=== PATIENT | female | born 1950 | race Hispanic/Latino ===

== ENCOUNTER 2017-02-17 08:25 | Outpatient (CLI) | payer MEDICARE ==
--- NOTE | 2017-02-17 11:00 | ULT ---
COMPLETE ABDOMINAL ULTRASOUND: HISTORY: A 66-year-old female with liver disease. FINDINGS: The gallbladder is demonstrated without evidence of gallstones, wall thickening, edema, or pericholec ystic fluid. The common bile duct is 0.5 cm. Multiple liver cysts, up to 6 cm. One small, 1 cm in diameter, hypoechoic focus in the anterior left lobe of the liver, incompletely characterized on this study, possibly a small cyst as well. The visualized pancreas, IVC, aorta, and spleen are unremarka ble. The kidneys show no hydronephrosis. IMPRESSION: 1. No evidence of gallstones. 2. Fairly large liver cyst, as well as a smaller, 1 cm in diameter, hypoechoic focus in the anterior left lobe, not definitively characterized on this study. 3. No ductal dilatation. 4. Slightly heterogeneous liver echogenicity, possibly representing a nonspecific diffuse hepatic pa renchymal process. POS: NARCISA
== END 2017-02-17 08:26 | disposition home or self-care (01) ==
LOC: ULT 08:25
PROVIDERS: ATTEND Family Medicine
DX: K76.89 Other specified diseases of liver (principal)
CPT/HCPCS: 76700

== ENCOUNTER 2017-08-28 09:16 | Outpatient (CLI) | payer MEDICARE | END 2017-08-28 09:17 | disposition home or self-care (01) | LOC: BICMAMMO 09:16 | PROVIDERS: ATTEND Family Medicine | DX: Z12.31 Encounter for screening mammogram for malignant neoplasm of breast (principal); Z80.3 Family history of malignant neoplasm of breast | CPT/HCPCS: 77063; 77067 ==

== ENCOUNTER 2018-01-30 10:32 | Outpatient (CLI) | payer MEDICARE ==
--- NOTE | 2018-01-30 12:25 | BD ---
DEXA BONE DENSITY: HISTORY: A 67-year-old postmenopausal female. COMPARISON: 06/26/2015 FINDINGS: LUMBAR SPINE BMD (g/cm2) T-SCORE Z-SCORE L1 0.741 -2.3 -0.5 L2 0.637 -3.6 -1.6 L3 0.747 -3.1 -1.0 L4 0,813 -2.3 -0.1 TOTAL 0.737 -2.8 -0.8 On 06/26/2015, BMD 0.796 and T-score -2.3. BMD change versus baseline 7.4%. BMD change versus previ ous -7.4%. FEMUR BMD (g/cm2) T-SCORE Z-SCORE FEMORAL NECK 0.673 -1.6 0.0 TOTAL FEMUR 0.795 -1.2 0.1 On 06/26/2015, BMD 0.816 and T-score -1.0. BMD change versus baseline 2.5%. BMD change versus previ ous -2.5%. IMPRESSION: 1. Lumbar spine World Health Organization (WHO) classification is osteoporosis. Fracture risk is hi gh. 2. Femoral neck World Health Organization (WHO) classification is osteopenia. Fracture risk not rep orted because some T-scores are at or below -3.5. POS: NARCISA
== END 2018-01-30 10:33 | disposition home or self-care (01) ==
LOC: BICMAMMO 10:32
PROVIDERS: ATTEND Family Medicine
DX: M85.88 Other specified disorders of bone density and structure, other site (principal); M85.0 Fibrous dysplasia (monostotic); M81.0 Age-related osteoporosis without current pathological fracture
CPT/HCPCS: 77080

== ENCOUNTER 2018-09-06 08:49 | Outpatient (CLI) | payer MEDICARE ==
--- NOTE | 2018-09-06 09:41 | MMO ---
Bilateral MAMMO Bilat Screen [facility]. CLINICAL HISTORY: Patient is 68 years old and is seen for screening. The patient has the following family history of breast cancer: maternal aunt, 50'S. The patient has no personal history of cancer. The patient has a history of right Excisional Biopsy in - benign and left cyst aspiration in - benign. VIEWS: The views performed were: bilateral craniocaudal with tomosynthesis and bilateral mediolateral oblique with tomosynthesis. FILMS COMPARED: The present examination has been compared to prior imaging studies performed at [facility] on 04/15/2014, 06/25/2015, 08/26/2016 and 08/28/2017. MAMMOGRAM FINDINGS: There are scattered fibroglandular densities. There are benign appearing calcifications seen in both breasts. There are no suspicious masses, suspicious calcifications, or new areas of architectural distortion. IMPRESSION: THERE IS NO MAMMOGRAPHIC EVIDENCE OF MALIGNANCY. A ROUTINE FOLLOW-UP MAMMOGRAM IN 1 YEAR IS RECOMMENDED. THE RESULTS OF THIS EXAM WERE SENT TO THE PATIENT. ACR BI-RADS Category 2 - Benign finding MAMMOGRAPHY NOTE: 1. A negative mammogram report should not delay a biopsy if a dominant of clinically suspicious mass is present. 2. Approximately 10% to 15% of breast cancers are not detected by mammography. 3. Adenosis and dense breasts may obscure an underlying neoplasm. Reported by: MERCEDES SALDANA MD Electonically Signed: [id number]
== END 2018-09-06 08:50 | disposition home or self-care (01) ==
LOC: BICMAMMO 08:49
PROVIDERS: ATTEND Family Medicine
DX: Z12.31 Encounter for screening mammogram for malignant neoplasm of breast (principal); Z80.3 Family history of malignant neoplasm of breast; Z91.89 Other specified personal risk factors, not elsewhere classified
CPT/HCPCS: 77063; 77067

== ENCOUNTER 2019-09-09 10:09 | Outpatient (CLI) | payer MEDICARE ==
--- NOTE | 2019-09-09 10:54 | MMO ---
Bilateral MAMMO Bilat Screen [facility]. CLINICAL HISTORY: Patient is 69 years old and is seen for screening. The patient has the following family history of breast cancer: maternal aunt, 50'S. The patient has no personal history of cancer. The patient has a history of right Excisional Biopsy in - benign and left cyst aspiration in - benign. VIEWS: The views performed were: bilateral craniocaudal with tomosynthesis and bilateral mediolateral oblique with tomosynthesis. FILMS COMPARED: The present examination has been compared to prior imaging studies performed at [facility] on 06/25/2015, 08/26/2016, 08/28/2017 and 09/06/2018. This study has been interpreted with the assistance of computer-aided detection. MAMMOGRAM FINDINGS: There are scattered fibroglandular densities. Finding 1: There are stable benign appearing calcifications seen in both breasts. Finding 2: There is a stable focal asymmetry seen in the outer region of the left breast. There are no suspicious masses, suspicious calcifications, or new areas of architectural distortion. IMPRESSION: THERE IS NO MAMMOGRAPHIC EVIDENCE OF MALIGNANCY. A ROUTINE FOLLOW-UP MAMMOGRAM IN 1 YEAR IS RECOMMENDED. THE RESULTS OF THIS EXAM WERE SENT TO THE PATIENT. ACR BI-RADS Category 2 - Benign finding MAMMOGRAPHY NOTE: 1. A negative mammogram report should not delay a biopsy if a dominant of clinically suspicious mass is present. 2. Approximately 10% to 15% of breast cancers are not detected by mammography. 3. Adenosis and dense breasts may obscure an underlying neoplasm. Reported by: MARIANO MURRAY MD Electonically Signed: [id number]
== END 2019-09-09 10:10 | disposition home or self-care (01) ==
LOC: BICMAMMO 10:09
PROVIDERS: ATTEND Family Medicine
DX: Z12.31 Encounter for screening mammogram for malignant neoplasm of breast (principal); Z80.3 Family history of malignant neoplasm of breast; Z91.89 Other specified personal risk factors, not elsewhere classified
CPT/HCPCS: 77063; 77067